=== PATIENT | female | born 1985 | race Caucasian/White ===

== ENCOUNTER → 2021-09-02 12:43 | Outpatient (BNVA) | payer MEDICAID, SELFPAY | PROVIDERS: Visit Provider Registered Nurse Neonatal Intensive Care | DX: T14.8XXA Other injury of unspecified body region, initial encounter (principal); W57.XXXA Bitten or stung by nonvenomous insect and other nonvenomous arthropods, initial encounter | CPT/HCPCS: 86618; 86666; 86757 ==

== ENCOUNTER 2021-11-22 17:18 | Emergency (ER) | payer BC, MEDICAID, SELFPAY ==
--- NOTE | 2021-11-22 17:48 | ED_ITS ---
Documented by User: Mani Robert DO 11/22/21 18:06 HPI - Chest Pain General: Chief Complaint: Chest Pain Stated Complaint: Chest pressure n/v Time Seen by Provider: 11/22/21 17:35 Source: patient Mode of arrival: ambulatory Limitations: no limitations History of Present Illness: 36-year-old female presents emergency room complaining of abdominal pain. She had some chest discomfort with it mostly abdominal pain radiating up into her chest. Patient relates that she drinks 3-6 drinks per night she has been trying to stop she use it as a mechanism for coping with her anxiety over some family situation issues. She has a who has acute renal failure and is on a waiting list for a transplant. She is also attempting to care for him and raise teenage sons. She has no history of coronary artery disease her symptoms began her overnight she has not drank in the last 24 hours she has not had any tremors, hallucinations. Prior to this attempt to stopping drinking she was not drinking every day but was drinking most days. Her average she states is probably closer to 2-4 alcoholic beverages per day. Onset (ago): hour(s) Timing of current episode: episodic Prior episodes: Yes Pain location: epigastric Pain radiation: other (Radiates into the chest) Quality: aching Relieving factors: nothing Exacerbating factors: nothing Associated symptoms: Reports abdominal pain and nausea; Deny diaphoresis, dyspnea, fever(s), leg edema, palpitations, sense of impending doom, syncope or vomiting Review of Systems Const: Denies: fever(s), chills, fatigue, malaise or diaphoresis ENMT: Denies: throat pain, ear or mastoid pain, nasal discharge or nasal congestion Card: Denies: palpitations or syncope Resp: Denies: dyspnea, productive cough or non-productive cough GI: Reports: abdominal pain, nausea and heartburn; Denies: vomiting : Denies: flank pain, difficulty voiding, dysuria, urinary frequency or urinary urgency Skin/Breast: Denies: rash or pruritus PFSH ED PFSH: Medical History Constipation Depression GERD (gastroesophageal reflux disease) Social History (Updated 11/22/21 @ 17:52 by Mani Robert DO) Smoking and tobacco status: never smoked Alcohol intake: current Alcohol intake frequency: 3 or more drinks per day Physical Exam Const: GENERAL APPEARANCE: cooperative and comfortable ORIENTATION/CONSCIOUSNESS: Yes awake, Yes oriented to person, Yes oriented to place and Yes oriented to time HENMT: COMMON NORMALS: normocephalic, atraumatic and hearing grossly normal bilaterally HEAD & SCALP: normocephalic and atraumatic Resp: COMMON NORMALS: normal respiratory effort, No retractions, No use of accessory muscles and clear to auscultation bilaterally AUSCULTATION: clear to auscultation bilaterally Cardio: COMMON NORMALS: regular rate, regular rhythm and No murmurs present (Cardio) RATE: regular rate RHYTHM: regular rhythm GI: COMMON NORMALS: Soft to palpation and No hepatosplenomegaly present AUSCULTATION: Yes normoactive bowel sounds PALPATION: Yes Soft to palpation, No Tenderness to palpation present (GI), No Guarding due to palpation present (GI) and Yes No hepatosplenomegaly present Extremity: COMMON NORMALS: normal to inspection, capillary refill normal, no clubbing, cyanosis or edema, no calf tenderness and no pedal edema Neuro: SENSORIUM/ORIENTATION: Yes oriented to person, Yes oriented to place and Yes oriented to time Skin: COMMON NORMALS: no rashes or lesions noted GENERAL SKIN EXAM: no rashes or lesions noted Course Vital Signs: Vital signs: Vital Signs Pulse Rate 66 11/22/21 19:56 Respiratory Rate 18 11/22/21 19:56 Blood Pressure 116/70 11/22/21 19:56 Pulse Oximetry 99 11/22/21 19:56 MDM - Chest Pain Medical Decision Making Care signed out to Dr. Hollis at change of shift. See final notes for diagnosis and disposition. Medical Records I reviewed the patient's medical records. Lab Data I reviewed the patient's lab results. : 11/22/21 18:05 11/22/21 18:05 Radiology Impressions Chest X-Ray 11/22/21 19:06 IMPRESSION: No acute findings. Laboratory Results WBC 5.6 10^3/uL (4.0-10.0) 11/22/21 18:05 RBC 3.94 10^6/uL (4.1-5.3) L 11/22/21 18:05 Hgb 13.0 g/dL (11.5-15.3) 11/22/21 18:05 Hct 38.5 % (37.0-47.0) 11/22/21 18:05 MCV 97.7 fl (81-99) 11/22/21 18:05 MCH 33.0 pg (28.0-34.0) 11/22/21 18:05 MCHC 33.8 g/dL (30.0-36.0) 11/22/21 18:05 RDW 13.0 % (12.1-15.1) 11/22/21 18:05 Plt Count 246 10^3/cmm (130-400) 11/22/21 18:05 MPV 9.5 fL (7.4-10.4) 11/22/21 18:05 Neut % (Auto) 55.8 % 11/22/21 18:05 Lymph % (Auto) 30.9 % 11/22/21 18:05 Graham % (Auto) 8.8 % 11/22/21 18:05 Eos % (Auto) 3.6 % 11/22/21 18:05 Baso % (Auto) 0.7 % 11/22/21 18:05 Neut # (Auto) 3.12 10^3/uL (1.8-7.7) 11/22/21 18:05 Lymph # (Auto) 1.7 10^3/uL (0.8-4.8) 11/22/21 18:05 Graham # (Auto) 0.5 10^3/uL (0.2-0.9) 11/22/21 18:05 Eos # (Auto) 0.2 10^3/uL (0.0-0.8) 11/22/21 18:05 Baso # (Auto) 0.0 10^3/uL (0.0-0.1) 11/22/21 18:05 Nucleated RBC % (auto) 0 % 11/22/21 18:05 Nucleated RBCs # 0.0 /100WBC 11/22/21 18:05 Sodium 140 mmol/L (136-145) 11/22/21 18:05 Potassium 3.9 mmol/L (3.5-5.1) 11/22/21 18:05 Chloride 105 mmol/L (98-107) 11/22/21 18:05 Carbon Dioxide 22 mmol/L (22-29) 11/22/21 18:05 Anion Gap 16.9 (5-19) 11/22/21 18:05 BUN 7 mg/dL (6-20) 11/22/21 18:05 Creatinine 0.4 mg/dL (0.5-0.9) L 11/22/21 18:05 GFR Calculation 179.6 mL/min (90-130) H 11/22/21 18:05 Glucose 87 mg/dL (65-115) 11/22/21 18:05 Calculated Osmolality 287 mOsm/kg (285-295) 11/22/21 18:05 Calcium 9.0 mg/dL (8.5-10.5) 11/22/21 18:05 Total Bilirubin 0.3 mg/dL (0.15-1.2) 11/22/21 18:05 AST 18 U/L (0-32) 11/22/21 18:05 ALT 11 U/L (0-33) 11/22/21 18:05 Alkaline Phosphatase 40 U/L (35-105) 11/22/21 18:05 Total Protein 7.6 g/dL (6.6-8.7) 11/22/21 18:05 Albumin 4.8 g/dL (3.5-5.2) 11/22/21 18:05 Globulin 2.8 g/dL (1.3-4.6) 11/22/21 18:05 Lipase 31 U/L (13-60) 11/22/21 18:05 Urine Color Yellow (Yellow) 11/22/21 19:11 Urine Appearance Clear (CLEAR) 11/22/21 19:11 Urine pH 6 (5-7) 11/22/21 19:11 Ur Specific [place] 1.000 (1.005-1.030) L 11/22/21 19:11 Urine Protein Neg (Negative) 11/22/21 19:11 Urine Glucose (UA) Norm (Normal) 11/22/21 19:11 Urine Ketones 1+ (Negative) H 11/22/21 19:11 Urine Blood Neg (Negative) 11/22/21 19:11 Urine Nitrate Negative (Negative) 11/22/21 19:11 Urine Bilirubin Neg (Negative) 11/22/21 19:11 Urine Urobilinogen Norm mg/dL (Negative) 11/22/21 19:11 Ur Leukocyte Esterase Negative (Negative) 11/22/21 19:11 Discharge Plan Discharge Patient Disposition: Home Clinical Impression: GERD (gastroesophageal reflux disease), Gastritis Condition: Stable Prescriptions: New Carafate 1 gram tablet 1 g PO TID 28 Days Qty: 84 0RF No Action sertraline 50 mg tablet 50 mg PO DAILY Qty: 30 0RF pantoprazole 20 mg tablet,delayed release (DR/EC) 20 mg PO QAM Qty: 30 0RF docusate sodium 250 mg capsule 250 mg PO DAILY Qty: 60 0RF Discharge Orders: Discharge ED (Routine); Ordered 11/22/21 Ordered By: Kevin Hollis Referrals: Michael Reed DO [Primary Care Provider] - 4-7 days Patient Instructions: Chest Pain (ED), Gastritis (ED) Activity Restrictions/Additional Instructions: Continue your pantoprazole. Add the medication you were prescribed, take 30 minutes before meals. Return for worsening pain despite treatment, shortness of breath, fever, cough, other concerning symptoms. See your doctor in follow-up. They may wish to run more outpatient testing Coding Level of Care Code ED Pest Control Service Sales Agent for Chg Fwd Exam Detailed Documented by User: Kevin Hollis DO 11/23/21 02:44 HPI - Chest Pain 2 General: Chief Complaint: Chest Pain Stated Complaint: Chest pressure n/v Time Seen by Provider: 11/22/21 17:35 [facility] ED PFSH: Medical History Constipation Depression GERD (gastroesophageal reflux disease) Social History (Updated 11/22/21 @ 17:52 by Mani Robert DO) Smoking and tobacco status: never smoked Alcohol intake: current Alcohol intake frequency: 3 or more drinks per day Course Vital Signs: Vital signs: Vital Signs Pulse Rate 66 11/22/21 19:56 Respiratory Rate 18 11/22/21 19:56 Blood Pressure 116/70 11/22/21 19:56 Pulse Oximetry 99 11/22/21 19:56 MDM - Chest Pain Medical Decision Making Care signed out to Dr. Hollis at change of shift. See final notes for diagnosis and disposition. 36-year-old female checked out to me by Dr. Robert at shift change. This lady is under quite a bit of stress. She presents with chest discomfort. Chest discomfort appears to be more related to GI symptoms. Her CBC is normal. Her EKG shows a sinus rhythm with an incomplete right bundle branch block and a rate of 65. Her axis is normal. Intervals are normal. No ST changes. Chest x-ray is normal. Her BMP is normal. She had some relief with a GI cocktail here. She is already on pantoprazole. She will be sent home with Carafate as well. There may be some degree of alcoholic gastritis. Lab Data : 11/22/21 18:05 11/22/21 18:05 Radiology Impressions Chest X-Ray 11/22/21 19:06 IMPRESSION: No acute findings. Laboratory Results WBC 5.6 10^3/uL (4.0-10.0) 11/22/21 18:05 RBC 3.94 10^6/uL (4.1-5.3) L 11/22/21 18:05 Hgb 13.0 g/dL (11.5-15.3) 11/22/21 18:05 Hct 38.5 % (37.0-47.0) 11/22/21 18:05 MCV 97.7 fl (81-99) 11/22/21 18:05 MCH 33.0 pg (28.0-34.0) 11/22/21 18:05 MCHC 33.8 g/dL (30.0-36.0) 11/22/21 18:05 RDW 13.0 % (12.1-15.1) 11/22/21 18:05 Plt Count 246 10^3/cmm (130-400) 11/22/21 18:05 MPV 9.5 fL (7.4-10.4) 11/22/21 18:05 Neut % (Auto) 55.8 % 11/22/21 18:05 Lymph % (Auto) 30.9 % 11/22/21 18:05 Graham % (Auto) 8.8 % 11/22/21 18:05 Eos % (Auto) 3.6 % 11/22/21 18:05 Baso % (Auto) 0.7 % 11/22/21 18:05 Neut # (Auto) 3.12 10^3/uL (1.8-7.7) 11/22/21 18:05 Lymph # (Auto) 1.7 10^3/uL (0.8-4.8) 11/22/21 18:05 Graham # (Auto) 0.5 10^3/uL (0.2-0.9) 11/22/21 18:05 Eos # (Auto) 0.2 10^3/uL (0.0-0.8) 11/22/21 18:05 Baso # (Auto) 0.0 10^3/uL (0.0-0.1) 11/22/21 18:05 Nucleated RBC % (auto) 0 % 11/22/21 18:05 Nucleated RBCs # 0.0 /100WBC 11/22/21 18:05 Sodium 140 mmol/L (136-145) 11/22/21 18:05 Potassium 3.9 mmol/L (3.5-5.1) 11/22/21 18:05 Chloride 105 mmol/L (98-107) 11/22/21 18:05 Carbon Dioxide 22 mmol/L (22-29) 11/22/21 18:05 Anion Gap 16.9 (5-19) 11/22/21 18:05 BUN 7 mg/dL (6-20) 11/22/21 18:05 Creatinine 0.4 mg/dL (0.5-0.9) L 11/22/21 18:05 GFR Calculation 179.6 mL/min (90-130) H 11/22/21 18:05 Glucose 87 mg/dL (65-115) 11/22/21 18:05 Calculated Osmolality 287 mOsm/kg (285-295) 11/22/21 18:05 Calcium 9.0 mg/dL (8.5-10.5) 11/22/21 18:05 Total Bilirubin 0.3 mg/dL (0.15-1.2) 11/22/21 18:05 AST 18 U/L (0-32) 11/22/21 18:05 ALT 11 U/L (0-33) 11/22/21 18:05 Alkaline Phosphatase 40 U/L (35-105) 11/22/21 18:05 Total Protein 7.6 g/dL (6.6-8.7) 11/22/21 18:05 Albumin 4.8 g/dL (3.5-5.2) 11/22/21 18:05 Globulin 2.8 g/dL (1.3-4.6) 11/22/21 18:05 Lipase 31 U/L (13-60) 11/22/21 18:05 Urine Color Yellow (Yellow) 11/22/21 19:11 Urine Appearance Clear (CLEAR) 11/22/21 19:11 Urine pH 6 (5-7) 11/22/21 19:11 Ur Specific [place] 1.000 (1.005-1.030) L 11/22/21 19:11 Urine Protein Neg (Negative) 11/22/21 19:11 Urine Glucose (UA) Norm (Normal) 11/22/21 19:11 Urine Ketones 1+ (Negative) H 11/22/21 19:11 Urine Blood Neg (Negative) 11/22/21 19:11 Urine Nitrate Negative (Negative) 11/22/21 19:11 Urine Bilirubin Neg (Negative) 11/22/21 19:11 Urine Urobilinogen Norm mg/dL (Negative) 11/22/21 19:11 Ur Leukocyte Esterase Negative (Negative) 11/22/21 19:11 Discharge Plan Discharge Patient Disposition: Home Clinical Impression: GERD (gastroesophageal reflux disease), Gastritis Condition: Stable Prescriptions: New Carafate 1 gram tablet 1 g PO TID 28 Days Qty: 84 0RF No Action sertraline 50 mg tablet 50 mg PO DAILY Qty: 30 0RF pantoprazole 20 mg tablet,delayed release (DR/EC) 20 mg PO QAM Qty: 30 0RF docusate sodium 250 mg capsule 250 mg PO DAILY Qty: 60 0RF Discharge Orders: Discharge ED (Routine); Ordered 11/22/21 Ordered By: Kevni Hollis Referrals: Michael Reed DO [Primary Care Provider] - 4-7 days Patient Instructions: Chest Pain (ED), Gastritis (ED) Activity Restrictions/Additional Instructions: Continue your pantoprazole. Add the medication you were prescribed, take 30 minutes before meals. Return for worsening pain despite treatment, shortness of breath, fever, cough, other concerning symptoms. See your doctor in follow-up. They may wish to run more outpatient testing Coding Level of Care Code ED Pest Control Service Sales Agent for Chg Fwd Exam Detailed
--- NOTE | 2021-11-22 17:53 | ECG_ITS ---
[facility] Test Date: 2021-11-22 Pat Name: Monica Be Department: Room: Gender: Female Veterinary Pathologist: : 1985 Requested By: Mani Kebede Order Number: [id number] Aimee MD: Keeley Fabian M.D. Measurements Intervals [place] Rate: 65 P: 35 [place]: 125 QRS: 72 QRSD: 104 T: -5 QT: 397 QTc: 415 Interpretive Statements SINUS RHYTHM INCOMPLETE RIGHT BUNDLE BRANCH BLOCK NONSPECIFIC T-WAVE ABNORMALITY No previous ECG available for comparison Electronically Signed On 11-23-2021 13:16:59 CDT by Keeley Fabian M.D. [email or web address]
[2021-11-22] MEDS: lidocaine 2% viscous 15 ML, aluminum-mag hydrox-simethicon 30 ML, sucralfate oral liq 1 GM PO (18:00)
[2021-11-22 18:11] LABS: Basophils % 0.7 %; Eosinophils # 0.2 10^3/uL (0.0-0.8); Eosinophils % 3.6 %; Hematocrit 38.5 % (37.0-47.0); Lymphocytes # 1.7 10^3/uL (0.8-4.8); Lymphocytes % 30.9 %; Mean Corpuscular HGB Conc 33.8 g/dL (30.0-36.0); Mean Corpuscular Volume 97.7 fl (81-99); Mean Platelet Volume 9.5 fL (7.4-10.4); Monocytes # 0.5 10^3/uL (0.2-0.9); Monocytes % 8.8 %; Neutrophils # 3.12 10^3/uL (1.8-7.7); Neutrophils % 55.8 %; Nucleated Red Blood Cells % 0 %; Platelet Count 246 10^3/cmm (130-400); Red Blood Count 3.94 10^6/uL (4.1-5.3); White Blood Count 5.6 10^3/uL (4.0-10.0)
[2021-11-22 18:48] LABS: Alanine Aminotransferase 11 U/L (0-33); Albumin Level 4.8 g/dL (3.5-5.2); Alkaline Phosphatase 40 U/L (35-105); Anion Gap 16.9 (5-19); Aspartate Amino Transferase 18 U/L (0-32); Blood Urea Nitrogen 7 mg/dL (6-20); Carbon Dioxide 22 mmol/L (22-29); Chloride 105 mmol/L (98-107); Globulin 2.8 g/dL (1.3-4.6); Glomerular Filtration Rate 179.6 mL/min (90-130); Glucose 87 mg/dL (65-115); Lipase 31 U/L (13-60); Osmolality Calculated 287 mOsm/kg (285-295); Potassium 3.9 mmol/L (3.5-5.1); Sodium 140 mmol/L (136-145); Total Bilirubin 0.3 mg/dL (0.15-1.2); Total Protein 7.6 g/dL (6.6-8.7)
--- NOTE | 2021-11-22 19:06 | XRR_ITS ---
PROCEDURE INFORMATION: Exam: XR Chest Exam date and time: 11/22/2021 7:17 PM Age: 36 years old Clinical indication: Angina; Additional info: Cp TECHNIQUE: Imaging protocol: Radiologic exam of the chest. Views: 1 view. COMPARISON: No relevant prior studies available. FINDINGS: Lungs: Unremarkable. No consolidation. Pleural spaces: Unremarkable. No pleural effusion. No pneumothorax. Heart/Mediastinum: Unremarkable. No cardiomegaly. Bones/joints: No acute findings. XR/XR chest 1V portable [id number] IMPRESSION: No acute findings.
[2021-11-22 19:28] LABS: Add Urine Microscopic? NO; Charge for UA Resulting for Rev
[2021-11-22 19:31] LABS: Bilirubin Urine Neg (Negative); Blood Urine Neg (Negative); Glucose Urine UA Norm (Normal); Ketones Urine 1+ (Negative); Leukocyte Esterase Urine Negative (Negative); Nitrate Urine Negative (Negative); Protein Urine Neg (Negative); Urine Appearance Clear (CLEAR); Urine Color Yellow (Yellow); Urobilinogen Urine Norm (Negative); pH Urine 6 (5-7)
[2021-11-22 19:56] VITALS: BP 116/70; PULSE 66; RESP 18; O2SAT 99
== END 2021-11-22 19:57 | disposition home or self-care (01) ==
PROVIDERS: Family Medicine; Emergency Provider Emergency Medicine; PCP Family Medicine
DX: K29.70 Gastritis, unspecified, without bleeding (principal); K21.9 Gastro-esophageal reflux disease without esophagitis
CPT/HCPCS: 71045; 80053; 81003; 83690; 85025; 93005; 99285

== ENCOUNTER → 2021-12-04 12:24 | Outpatient (BNVA) | payer BC, MEDICAID, SELFPAY | PROVIDERS: PCP Family Medicine; Visit Provider Family Medicine | DX: F32.A Depression, unspecified (principal); K21.9 Gastro-esophageal reflux disease without esophagitis; K59.00 Constipation, unspecified; L65.9 Nonscarring hair loss, unspecified; Z76.89 Persons encountering health services in other specified circumstances | CPT/HCPCS: 80061; 84439; 84443 ==

== ENCOUNTER 2022-02-07 15:44 | Outpatient (CLI) | payer BC, MEDICAID, SELFPAY ==
[2022-02-07 16:21] LABS: Basophils % 0.7 %; Eosinophils # 0.1 10^3/uL (0.0-0.8); Hematocrit 31.8 % (37.0-47.0); Hemoglobin 10.4 g/dL (11.5-15.3); Lymphocytes % 35.6 %; Mean Corpuscular HGB Conc 32.7 g/dL (30.0-36.0); Mean Corpuscular Hemoglobin 31.8 pg (28.0-34.0); Mean Corpuscular Volume 97.2 fl (81-99); Mean Platelet Volume 9.1 fL (7.4-10.4); Monocytes # 0.5 10^3/uL (0.2-0.9); Monocytes % 8.5 %; Neutrophils # 2.99 10^3/uL (1.8-7.7); Nucleated Red Blood Cells % 0 %; Platelet Count 307 10^3/cmm (130-400); Red Blood Count 3.27 10^6/uL (4.1-5.3); Red Cell Distribution Width 12.6 % (12.1-15.1); White Blood Count 5.6 10^3/uL (4.0-10.0)
[2022-02-07 16:37] LABS: Alanine Aminotransferase 14 U/L (0-33); Albumin Level 3.7 g/dL (3.5-5.2); Alkaline Phosphatase 67 U/L (35-105); Anion Gap 14.6 (5-19); Aspartate Amino Transferase 20 U/L (0-32); Blood Urea Nitrogen 11 mg/dL (6-20); Calcium 8.7 mg/dL (8.5-10.5); Carbon Dioxide 25 mmol/L (22-29); Chloride 101 mmol/L (98-107); Globulin 3.7 g/dL (1.3-4.6); Glomerular Filtration Rate 138.8 mL/min (90-130); Glucose 88 mg/dL (65-115); Osmolality Calculated 283 mOsm/kg (285-295); Potassium 3.6 mmol/L (3.5-5.1); Sodium 137 mmol/L (136-145); Total Bilirubin 0.3 mg/dL (0.15-1.2); Total Protein 7.4 g/dL (6.6-8.7)
[2022-02-07 19:04] LABS: HIV 1 & 2 Antibody Non-Reactive (Non-Reactiv); HIV 1 & 2 Antigen Non-Reactive (Non-Reactiv)
[2022-02-10 15:08] LABS: Anti-Nuclear Antibody Screen NEGATIVE (NEGATIVE)
== END 2022-02-07 15:45 | disposition home or self-care (01) ==
LOC: LAB 15:51
PROVIDERS: PCP Family Medicine; Visit Provider Student in an Organized Health Care Education/Training Program
DX: Z01.89 Encounter for other specified special examinations (principal)
CPT/HCPCS: 36415; 80053; 85025; 86038; 87806

== ENCOUNTER 2023-01-09 12:59 | Emergency (ER) | payer BC, MEDICAID, SELFPAY ==
[2023-01-09 13:04] VITALS: BP 112/74; PULSE 106; RESP 18; TEMP 36.8; O2SAT 96; BMI 24.1
--- NOTE | 2023-01-09 14:58 | ED_ITS ---
HPI - Wound/Laceration General: Chief Complaint: Wound/Laceration Stated Complaint: left hand lac Time Seen by Provider: 01/09/23 13:25 Source: patient Mode of arrival: ambulatory Limitations: no limitations History of Present Illness: Patient presents emergency department for evaluation treatment of laceration sustained to the left hand. Patient states that she is in the middle of moving and was trying to remove the flap off of a cardboard moving box when she accidentally impacted the dorsum of her left hand just below the first MCP joint. She states she had it wrapped last night with a bandage and triple antibiotic ointment however, when she saw it this morning thought it may require stitches. Last tetanus immunization was approximately 2 years ago. Review of Systems General: Reports: 10 or more systems reviewed and unremarkable except in HPI and below PFSH ED PFSH: Medical History Close exposure to COVID-19 virus Constipation Depression GERD (gastroesophageal reflux disease) Pharyngitis Psychiatric care Social History Smoking and tobacco/nicotine status: never used tobacco/nicotine Alcohol intake: current Alcohol intake frequency: 3 or more drinks per day Female Reproductive History: Spontaneous abortions: No Physical Exam Const: COMMON NORMALS: no acute distress, average body habitus and patient oriented x3 HENMT: COMMON NORMALS: normocephalic, atraumatic, hearing grossly normal bilaterally, Normal external nose present and moist oral mucous membranes HEAD & SCALP: normocephalic and atraumatic NOSE: Normal external nose present Eye: COMMON NORMALS: Equal, round and reactive pupils present, EOMs intact bilaterally and conjunctivae normal CONJUNCTIVA: Yes conjunctivae normal PUPIL: Yes Equal, round and reactive pupils present Neck/C-Spine: COMMON NORMALS: no JVD Lymph: LYMPHATIC: no lymphadenopathy noted Resp: COMMON NORMALS: normal respiratory effort, No retractions and No use of accessory muscles Cardio: COMMON NORMALS: no JVD, regular rate and regular rhythm RATE: regular rate RHYTHM: regular rhythm GI: COMMON NORMALS: Normal to inspection, nondistended, normoactive bowel sounds present : COMMON NORMALS: Yes no CVA tenderness BLADDER/KIDNEY EXAM: Yes no CVA tenderness Back/Pelvis: COMMON NORMALS: no CVA tenderness and thoraco-lumbar ROM normal Extremity: COMMON NORMALS: normal to inspection, full ROM and capillary refill normal NARRATIVE EXTREMITY EXAM: Patient with range of motion intact to her thumb. Neuro: COMMON NORMALS: patient oriented x3 Psych: COMMON NORMALS: mental status grossly normal, Normal thought process present, cooperative, normal affect and activity/motor behavior normal THOUGHT PROCESS: Normal thought process present Skin: NARRATIVE SKIN EXAM: Patient has a linear laceration approximately 1.5 cm in length with approximately 0.5 cm in wound edge separation noted to the dorsum of the left hand approximately 1-1/2 cm proximal to the first MCP joint. No active bleeding. Procedures Laceration Laceration 1: Site: hand Side (If applicable): left Size (cm): 1.5 Description: linear and clean Depth: simple, single layer Local Anesthetic: lidocaine 1% Amount of anesthesia used (mL): 4 Pre-repair: wound explored, irrigated extensively and deep structures intact Skin layer closed with: nylon Size (cm): 4-0 Number of sutures: 4 Technique: simple, interrupted Course Vital Signs: Vital signs: Vital Signs Temperature 98.2 F 01/09/23 13:04 Pulse Rate 106 H 01/09/23 13:04 Respiratory Rate 18 01/09/23 13:04 Blood Pressure 112/74 01/09/23 13:04 Pulse Oximetry 96 01/09/23 13:04 Oxygen Delivery Me thod Room Air 01/09/23 13:04 MDM - Wound/Laceration Medical Decision Making Examination of the patient's wound did show it needed to be repaired using sutures. Patient's wound was anesthetized, deeply cleaned with sterile saline and Betadine swabs and repaired using 4-0 nylon sutures. Patient received 4 sutures resulting in good wound edge approximation. However, explained to her that with certain range of motion this will cause pulling on the sutures and risk of wound dehiscence. For that reason we covered with bandaging and wrapped the hand to prevent excessive mobility of the thumb. We provided her instructions for wound care and cleaning daily as well as need for suture removal in approximately 10 days. She was given signs and symptoms of infection for which she should be seen and reevaluated. Patient verbalized understanding and agreement to treatment plan. Differential Diagnosis Likely laceration; Unlikely abscess, abrasion or avulsion of skin No radiology studies performed this visit Discharge Plan Discharge Patient Disposition: Home Clinical Impression: Laceration of hand, left Condition: Stable Prescriptions: New mupirocin 2 % ointment 1 applic topical BID Qty: 22 0RF No Action bupropion HCl 150 mg tablet sustained-release 12 hr 150 mg PO DAILY clonazepam 1 mg tablet 0.5 mg PO DAILY Rx Instructions: Take 1/2 tab by mouth as needed for anxiety. sertraline 50 mg tablet 50 mg PO DAILY Discharge Orders: Discharge ED (Routine); Ordered 01/09/23 Ordered By: Sandra Gomez Referrals: Michael Reed DO [Primary Care Provider] - Discharge Diet: Usual diet Discharge Activity: Limit activity as instructed Patient Instructions: Care For Your Stitches (ED) Activity Restrictions/Additional Instructions: Examination of your wound today did show a laceration with wound edge separation requiring stitches. He received 4 nonabsorbable sutures which need to be removed by your primary care/urgent care/ER in 10 days. I do recommend keeping your hand wrapped to limit the mobility of your thumb as flexing the thumb will cause increased tension at your wound site. This could cause pulling through or breaking of your sutures. We recommend washing the wound at least twice a day with warm water and a mild soap. For the first 2 to 3 days we also recommend applying the mupirocin cream provided to you as a prescription to prevent development of infection. After that time, I do recommend letting it remain dry under dry bandaging to complete the scabbing process and to promote healing. Watch for any sudden swelling, redness, or draining of a thick green or yellow material from the wound. These could indicate infection. Thin, graves/watery drainage from the wound is often serosanguineous fluid containing white blood cells and is normal findings while healing. Stand Alone Forms: Work/School Release Coding Level of Care Code ED Circular [employer] Cooper for Angelina Mojica
[2023-01-09 15:30] VITALS: PULSE 92; O2SAT 98
== END 2023-01-09 15:32 | disposition home or self-care (01) ==
PROVIDERS: Emergency Provider Physician Assistant; PCP Family Medicine
DX: S61.412A Laceration without foreign body of left hand, initial encounter (principal); W26.0XXA Contact with knife, initial encounter
CPT/HCPCS: 12001; 99283

== ENCOUNTER → 2023-02-10 10:31 | Outpatient (BNVA) | payer BC, SELFPAY | PROVIDERS: PCP Family Medicine; Visit Provider Psychiatry & Neurology Psychiatry | DX: F41.0 Panic disorder [episodic paroxysmal anxiety] (principal); F41.1 Generalized anxiety disorder | CPT/HCPCS: 80061; 83036 ==

== ENCOUNTER → 2023-02-17 10:15 | Outpatient (BNVA) | payer BC, MEDICAID, SELFPAY | PROVIDERS: PCP Family Medicine; Visit Provider Family Medicine | DX: Z01.419 Encounter for gynecological examination (general) (routine) without abnormal findings (principal) | CPT/HCPCS: 87491; 87591; 87624; 87661 ==

== ENCOUNTER → 2024-08-23 08:45 | Outpatient (BNVA) | payer BC, SELFPAY ==
[2023-02-19 16:17] VITALS: BP 104/70; BMI 24.0
== END ==
PROVIDERS: PCP Family Medicine; Visit Provider Family Medicine
DX: L65.9 Nonscarring hair loss, unspecified (principal); R61 Generalized hyperhidrosis; N95.9 Unspecified menopausal and perimenopausal disorder; F10.20 Alcohol dependence, uncomplicated
CPT/HCPCS: 80053; 80061; 82672; 83001; 83002; 84144; 84439; 84443; 85025

== ENCOUNTER → 2025-03-06 13:30 | Outpatient (BNVA) | payer BC, SELFPAY ==
[2023-02-19 16:17] VITALS: BP 104/70; BMI 24.0
== END ==
PROVIDERS: PCP Family Medicine; Visit Provider Family Medicine
DX: E55.9 Vitamin D deficiency, unspecified (principal); F41.9 Anxiety disorder, unspecified; F41.0 Panic disorder [episodic paroxysmal anxiety]; F33.2 Major depressive disorder, recurrent severe without psychotic features; N95.1 Menopausal and female climacteric states; R79.89 Other specified abnormal findings of blood chemistry
CPT/HCPCS: 80053; 80061; 82306; 82607; 82670; 83001; 83002; 84144; 84439; 84443; 85025